=== PATIENT | female | born 1955 | race Caucasian/White ===

== ENCOUNTER 2016-06-27 18:01 | Inpatient (IN) | payer MEDICARE ==
[~2016-06-27] VITALS: Ht 160 cm; Wt 60.3 kg
[2016-06-27] MEDS ORDERED: ALLO300T2 PO (18:45)
[2016-06-27] MEDS ORDERED: NEOM500T PO (18:45)
[2016-06-27] MEDS ORDERED: ESTR2TAB PO (18:45)
[2016-06-27] MEDS ORDERED: ALEN70TA45 PO (18:45)
[2016-06-27] MEDS ORDERED: CLON1TAB4 PO (18:45)
[2016-06-27] MEDS ORDERED: LEVO50TA8 PO (18:45)
[2016-06-27] MEDS ORDERED: BACL20TA PO (18:45)
[2016-06-27] MEDS ORDERED: POLY17PO3 PO (18:45)
[2016-06-27] MEDS ORDERED: OMEP40CA37 PO (18:45)
[2016-06-27] MEDS ORDERED: DOCU-170 PO (18:49)
[2016-06-27] MEDS ORDERED: MAGNESIUM HYDROXIDE 30 ML LIQUID UDC PO PRN (22:00)
[2016-06-27] MEDS ORDERED: ACETAMINOPHEN 325 MG TABLET PO PRN (22:00)
[2016-06-27] MEDS ORDERED: MAG HYDROX/AL HYDROX/SIMETH 30 ML LIQUID UDC PO PRN (22:00)
[2016-06-27] MEDS ORDERED: CLONAZEPAM 0.5 MG TABLET PO PRN (22:15)
[2016-06-27] MEDS ORDERED: DOCUSATE SODIUM 100 MG CAPSULE PO PRN (23:00)
[2016-06-27] MEDS: TEMAZEPAM 7.5 MG CAPSULE PO PRN (23:05)
[2016-06-27] MEDS ORDERED: TEMAZEPAM 7.5 MG CAPSULE ONE (23:15)
[2016-06-27] MEDS ORDERED: MAGNESIUM HYDROXIDE 30 ML LIQUID UDC ONE (23:30)
[2016-06-28 00:09] VITALS: BP 133/80
[2016-06-28] MEDS: CLONAZEPAM 0.5 MG TABLET PO PRN ×2 (00:33→15:27)
[2016-06-28] MEDS ORDERED: CLONAZEPAM 0.5 MG TABLET ONE (00:36)
[2016-06-28 08:00] VITALS: BP 123/84
[2016-06-28 08:25] LABS: CREATININE 1.2 mg/dL (0.6-1.3)
[2016-06-28] MEDS ORDERED: MIRALAX 17 GM POWD.PACK PO SCH (09:00)
[2016-06-28] MEDS ORDERED: Medication Not On Formulary EA (Omeprazole 40 MG) PO SCH (09:00)
[2016-06-28] MEDS: PANTOPRAZOLE SODIUM 40 MG TABLET.DR PO SCH (09:06)
[2016-06-28] MEDS: ESTRADIOL 1 MG TABLET PO SCH (09:06)
[2016-06-28] MEDS: BACLOFEN 20 MG TABLET PO SCH ×2 (09:06→17:41)
[2016-06-28] MEDS: LEVOTHYROXINE SODIUM 50 MCG TABLET PO SCH (09:06)
[2016-06-28] MEDS: ALLOPURINOL 300 MG TABLET PO SCH (09:07)
[2016-06-28] MEDS: MIRALAX 17 GM POWD.PACK PO SCH ×2 (09:51→17:41)
[2016-06-28] MEDS: NICOTINE 14 MG/24HR PATCH TD SCH (13:11)
[2016-06-28 16:00] VITALS: BP 130/75
[2016-06-28 18:41] LABS: *BILIRUBIN,URIN NEGATIVE (NEGATIVE); *BLOOD, URINE NEGATIVE (NEGATIVE); *CLARITY,URINE CLEAR (CLEAR); *COLOR,URINE YELLOW (YELLOW); *KETONES,URINE NEGATIVE (NEGATIVE); *PROTEIN,URINE NEGATIVE (NEGATIVE); *UROBILINOGEN,URINE 0.2 E.U./dl (NORMAL); NITRITE, URINE NEGATIVE (NEGATIVE); PH,URINE 5.5 (5.0-8.0); UGLUCOSE NEGATIVE (NEGATIVE)
[2016-06-28 18:43] LABS: LEUKOCYTE ESTERASE ,URINE TRACE (NEGATIVE)
[2016-06-28 18:49] LABS: BACTERIA,URINE FEW /HPF (NONE SEEN); SQUAMOUS EPITHELIAL CELL,UR FEW /HPF (NONE SEEN)
[2016-06-28 18:50] LABS: RBC,URINE 0-3 /HPF (0-3)
[2016-06-28 20:24] VITALS: BP 105/62
[2016-06-28] MEDS: MIRTAZAPINE 15 MG TABLET PO SCH (20:43)
[2016-06-28] MEDS: QUETIAPINE FUMARATE 25 MG TABLET PO SCH (20:50)
[2016-06-28] MEDS: TRAMADOL HCL 50 MG TABLET PO PRN (21:52)
[2016-06-28] MEDS ORDERED: TRAMADOL HCL 50 MG TABLET ONE (22:01)
[2016-06-28] MEDS: TEMAZEPAM 7.5 MG CAPSULE PO PRN (22:26)
[2016-06-29] MEDS: CLONAZEPAM 0.5 MG TABLET PO PRN ×3 (05:41→21:26)
[2016-06-29] MEDS ORDERED: ALENDRONATE SODIUM 70 MG TABLET PO SCH (06:00)
[2016-06-29] MEDS: LEVOTHYROXINE SODIUM 50 MCG TABLET PO SCH (06:07)
[2016-06-29] MEDS: PANTOPRAZOLE SODIUM 40 MG TABLET.DR PO SCH (06:07)
[2016-06-29 07:28] LABS: BASOPHILS % (AUTO) 0.7 % (0.0-2.0); EOSINOPHILS # (AUTO) 0.1 K/uL (0.0-0.7); EOSINOPHILS % (AUTO) 1.3 % (0.0-7.0); HEMATOCRIT 43.5 % (31.2-41.9); HEMOGLOBIN 14.8 g/dL (10.9-14.3); LYMPHOCYTES # (AUTO) 1.7 K/uL (20.0-40.0); LYMPHOCYTES % (AUTO) 34.1 % (20.5-51.5); MEAN CORPUSCULAR HEMOGLOBIN 32.3 uug (24.7-32.8); MEAN CORPUSCULAR HGB CONC 34 g/dL (32.3-35.6); MEAN CORPUSCULAR VOLUME 95.2 fL (75.5-95.3); MONOCYTES # (AUTO) 0.6 K/uL (2.0-10.0); MONOCYTES % (AUTO) 11.9 % (0.0-11.0); NEUTROPHILS # (AUTO) 2.6 K/uL (1.8-8.9); RED BLOOD CELL COUNT(AUTO) 4.57 MIL/uL (3.63-4.92); RED CELL DISTRIBUTION WIDTH 13.1 % (12.3-17.7)
[2016-06-29 07:36] LABS: CALCIUM 8.6 mg/dL (8.5-10.1); POTASSIUM 3.8 mmol/L (3.5-5.1)
[2016-06-29 08:00] VITALS: BP 116/78
[2016-06-29 08:14] LABS: PLATELET COUNT (AUTO) 165 K/uL (179-408)
[2016-06-29] MEDS: QUETIAPINE FUMARATE 25 MG TABLET PO SCH ×2 (08:54→20:41)
[2016-06-29] MEDS: MIRALAX 17 GM POWD.PACK PO SCH ×2 (08:55→17:44)
[2016-06-29] MEDS: BACLOFEN 20 MG TABLET PO SCH ×2 (08:56→17:44)
[2016-06-29] MEDS: NICOTINE 14 MG/24HR PATCH TD SCH (08:56)
[2016-06-29] MEDS: ALLOPURINOL 300 MG TABLET PO SCH (08:57)
[2016-06-29] MEDS: ESTRADIOL 1 MG TABLET PO SCH (09:05)
[2016-06-29 11:07] VITALS: BP_SYST 116; BP_SYST 142; BP_DIAS 78; BP_DIAS 85
[2016-06-29 16:26] VITALS: BP 130/80
[2016-06-29] MEDS: NEOMYCIN SULFATE 500 MG TABLET PO SCH (17:44)
[2016-06-29] MEDS: TRAMADOL HCL 50 MG TABLET PO PRN (20:35)
[2016-06-29 20:38] VITALS: BP 115/74
[2016-06-29] MEDS: MIRTAZAPINE 15 MG TABLET PO SCH (20:41)
[2016-06-29] MEDS: TEMAZEPAM 7.5 MG CAPSULE PO PRN (22:34)
[2016-06-30] MEDS: CLONAZEPAM 0.5 MG TABLET PO PRN ×3 (02:04→23:24)
[2016-06-30] MEDS: PANTOPRAZOLE SODIUM 40 MG TABLET.DR PO SCH (06:26)
[2016-06-30] MEDS: LEVOTHYROXINE SODIUM 50 MCG TABLET PO SCH (06:26)
[2016-06-30 07:30] VITALS: BP 123/74
[2016-06-30] MEDS: ESTRADIOL 1 MG TABLET PO SCH (08:50)
[2016-06-30] MEDS: MIRALAX 17 GM POWD.PACK PO SCH ×2 (08:52→16:29)
[2016-06-30] MEDS: BACLOFEN 20 MG TABLET PO SCH ×2 (08:52→16:29)
[2016-06-30] MEDS: NICOTINE 14 MG/24HR PATCH TD SCH (08:53)
[2016-06-30] MEDS: NEOMYCIN SULFATE 500 MG TABLET PO SCH ×2 (08:53→16:30)
[2016-06-30] MEDS: ALLOPURINOL 300 MG TABLET PO SCH (08:55)
[2016-06-30] MEDS: QUETIAPINE FUMARATE 25 MG TABLET PO SCH ×2 (08:57→20:46)
[2016-06-30] MEDS: TRAMADOL HCL 50 MG TABLET PO PRN ×2 (10:41→18:31)
[2016-06-30] MEDS: TRIAMCINOLONE ACET 0.025% CREA 15 GM TUBE TP PRN ×2 (11:05→20:28)
[2016-06-30 15:35] VITALS: BP 118/73
[2016-06-30 20:17] VITALS: BP 137/88
[2016-06-30] MEDS: MIRTAZAPINE 15 MG TABLET PO SCH (20:46)
[2016-07-01] MEDS: LEVOTHYROXINE SODIUM 50 MCG TABLET PO SCH (06:27)
[2016-07-01] MEDS: PANTOPRAZOLE SODIUM 40 MG TABLET.DR PO SCH ×2 (07:00→08:18)
[2016-07-01 07:30] VITALS: BP 140/80
[2016-07-01] MEDS: QUETIAPINE FUMARATE 25 MG TABLET PO SCH ×2 (08:15→20:05)
[2016-07-01] MEDS: NICOTINE 14 MG/24HR PATCH TD SCH (08:18)
[2016-07-01] MEDS: ESTRADIOL 1 MG TABLET PO SCH (08:18)
[2016-07-01] MEDS: BACLOFEN 20 MG TABLET PO SCH ×2 (08:18→16:14)
[2016-07-01] MEDS: ALLOPURINOL 300 MG TABLET PO SCH (08:19)
[2016-07-01] MEDS: NEOMYCIN SULFATE 500 MG TABLET PO SCH ×2 (08:19→16:14)
[2016-07-01] MEDS: MIRALAX 17 GM POWD.PACK PO SCH ×2 (08:27→16:14)
[2016-07-01] MEDS: TRAMADOL HCL 50 MG TABLET PO PRN (15:00)
[2016-07-01 15:22] VITALS: BP 122/81
[2016-07-01] MEDS: CLONAZEPAM 0.5 MG TABLET PO PRN (16:18)
[2016-07-01] MEDS: MIRTAZAPINE 15 MG TABLET PO SCH (20:05)
[2016-07-01 20:57] VITALS: BP 132/87
[2016-07-02] MEDS: CLONAZEPAM 0.5 MG TABLET PO PRN ×2 (01:12→14:47)
[2016-07-02] MEDS: LEVOTHYROXINE SODIUM 50 MCG TABLET PO SCH (06:23)
[2016-07-02] MEDS: PANTOPRAZOLE SODIUM 40 MG TABLET.DR PO SCH (06:23)
[2016-07-02 07:30] VITALS: BP 132/78
[2016-07-02] MEDS: BACLOFEN 20 MG TABLET PO SCH (08:12)
[2016-07-02] MEDS: ALLOPURINOL 300 MG TABLET PO SCH (08:12)
[2016-07-02] MEDS: NICOTINE 14 MG/24HR PATCH TD SCH (08:12)
[2016-07-02] MEDS: MIRALAX 17 GM POWD.PACK PO SCH (08:12)
[2016-07-02] MEDS: ESTRADIOL 1 MG TABLET PO SCH (08:12)
[2016-07-02] MEDS: NEOMYCIN SULFATE 500 MG TABLET PO SCH ×2 (08:12→16:38)
[2016-07-02] MEDS: QUETIAPINE FUMARATE 25 MG TABLET PO SCH (08:38)
[2016-07-02] MEDS: TRAMADOL HCL 50 MG TABLET PO PRN ×2 (08:43→15:51)
[2016-07-02 15:20] VITALS: BP 148/95
== END 2016-07-02 17:00 | disposition home or self-care (01) | DRG 885 ==
LOC: ER 18:04 → GPS 21:08
PROVIDERS: ADMIT Psychiatry & Neurology Psychiatry; ATTEND Family Medicine
DX: F33.3 Major depressive disorder, recurrent, severe with psychotic symptoms (principal); F13.239 Sedative, hypnotic or anxiolytic dependence with withdrawal, unspecified; R45.851 Suicidal ideations; F13.20 Sedative, hypnotic or anxiolytic dependence, uncomplicated; E03.9 Hypothyroidism, unspecified; M79.7 Fibromyalgia; I10 Essential (primary) hypertension; M81.0 Age-related osteoporosis without current pathological fracture; E21.3 Hyperparathyroidism, unspecified; D69.6 Thrombocytopenia, unspecified; F43.10 Post-traumatic stress disorder, unspecified; J44.9 Chronic obstructive pulmonary disease, unspecified; K21.9 Gastro-esophageal reflux disease without esophagitis; Z85.42 Personal history of malignant neoplasm of other parts of uterus; Z90.710 Acquired absence of both cervix and uterus; D75.1 Secondary polycythemia; Z88.0 Allergy status to penicillin; Z73.6 Limitation of activities due to disability; T42.4X5A Adverse effect of benzodiazepines, initial encounter; Y92.009 Unspecified place in unspecified non-institutional (private) residence as the place of occurrence of the external cause; R51 Headache; R73.9 Hyperglycemia, unspecified; Z79.899 Other long term (current) drug therapy
CPT/HCPCS: 36415; 71010; 85025; 87086; 93005; A4663; J8499